=== PATIENT | male | born 1995 | race Caucasian/White ===

== ENCOUNTER 2017-07-05 23:07 | Emergency (ER) | payer OTHER ==
--- NOTE | 2017-07-05 23:33 | ED Physician Documentation ---
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 denies: head, neck, face, chest, abdomen Injury to Right Extremity: none Injury to Left Extremity: none Further Comments: yes (pt can walk stand declares pain worse wt bearing but does not radiate from site xc when coughs or strains) - ROS CONST: no problems. denies: recent illness, fever NEURO: dizziness MS/SKIN/LYMPH: back pain. denies: weakness, numbness, neck pain, ankle swelling , leg swelling EYES/ENT: none CVS/RESP: none - PAST HX Past History: none Allergies/Adverse Reactions: Allergies Allergy/AdvReac Type Severity Reaction Status Date / Time No Known Allergies Allergy Unverified 07/05/17 23:29 Home Medications: Ambulatory Orders Medication Instructions Recorded NK [NK] 07/05/17 - SOCIAL HX Smoking History: non-smoker Alcohol Use: none Drug Use: none - FAMILY HX Family History: no significant history - REVIEWED ASSESSMENTS Nursing Assessment Reviewed: Yes Vitals Reviewed: Yes ED Results Lab/Radiology - Radiology Radiology Impressions: radiologists says no fracture - Orders Orders: ED Orders Category Date Time Status Place IV Lock 1T Care 07/05/17 23:28 Ordered fentaNYL CITRATE/PF [Duragesic] Med 07/05/17 23:29 Once 50 mcg IVP NOW ONE Fall Physical Exam - Physical Exam General Appearance: moderate distress Head: non-tender, no swelling, no obvious injury Neck: non-tender, painless ROM, trachea midline Eye: [place], EOMI ENT: nml external inspection Resp/CVS: chest non-tender, no ecchymosis, breath sounds nml, no resp. distress , heart sounds nml. No: subcutaneous emphysema, decreased breath sounds, wheezes, rales Abdomen: soft, non-tender Neuro: oriented x3, sensation nml, motor nml, mood/affect nml Skin: color nml, no rash. No: cyanosis, diaphoresis, pallor, ecchymosis Back: No: no CVA tenderness, no vertebral tenderness Extremities: atraumatic, pelvis stable (but poelvicstress prod pain area and rt hip). No: unable to bear weight - [place] Coma Score Eyes Open: Spontaneous Speech: Oriented Motor: Localizes to Pain Discharge Clincal Impression: fall 10 feet onto metal machine, thoraco-lumbar back kpain Referrals: Primary Doctor,No [Primary Care Provider] - 2 Days Disposition: HOME, SELF-CARE Decision to Admit: NO Decision Time: 00:42
[2017-07-06] MEDS: KETOROLAC TROMETHAMINE 30 MG/1ML VIAL IVP ONE (00:09)
[2017-07-06] MEDS: fentaNYL CITRATE/PF 100 MCG/ 2ML AMP IVP ONE (00:09)
[2017-07-06 01:45] VITALS: BP 138/68
[2017-07-06] MEDS: HYDROcodone /APAP 5/325 1 EACH TABLET PO ONE (01:45)
--- NOTE | 2017-07-06 06:35 | Diagnostic Imaging Report ---
[facility] [address] [facility] [address] [address] Report Submission Date: Jul 06, 2017 12:13:24 AM CDT Patient Study Name: NISREEN GRANT Date: Jul 05, 2017 11:49:18 PM CDT Modality Type: CT\SR Gender: M Description: CT L-SPINE W/O CONTRAS : 96 Institution: [facility] Physician: RAND [facility]UR[facility] Computed tomography of the lumbar spine without contrast History: Low back pain after fall Findings: Transverse lumbar spine sections are obtained without contrast. The lumbar spine is intact without fracture, disc space narrowing, spondylolysis, or spondylolisthesis. There is no disc centered abnormality, foraminal stenosis , or central canal stenosis. Impression: Intact lumbar spine. Electronically signed on Jul 06, 2017 12:13:24 AM CDT by: Keshawn SHELL
--- NOTE | 2017-07-06 06:36 | Diagnostic Imaging Report ---
[facility] [address] [facility] [address] [address] Report Submission Date: Jul 06, 2017 12:15:59 AM CDT Patient Study Name: NISREEN GRANT Date: Jul 05, 2017 11:55:08 PM CDT Modality Type: CT\SR Gender: M Description: CT T-SPINE W/O CONTRAS : 96 Institution: [facility] Physician: RAND HURST Computed tomography of the thoracic spine without contrast History: Back pain after fall Findings: Transverse thoracic spine sections are obtained without contrast. The thoracic spine is intact without fracture, disc space narrowing, focal bone lesion, or paraspinal swelling. A Impression: Intact thoracic spine. Electronically signed on Jul 06, 2017 12:15:59 AM CDT by: Keshawn SHELL
== END 2017-07-06 01:10 | disposition home or self-care (01) ==
LOC: ED 23:07
DX: M54.5 Low back pain (principal); M54.6 Pain in thoracic spine; W19.XXXA Unspecified fall, initial encounter; Y93.9 Activity, unspecified; Y99.9 Unspecified external cause status
CPT/HCPCS: 72128; 72131; 99283

== ENCOUNTER 2017-07-05 23:07 | Emergency (ER) | payer SELFPAY ==
--- NOTE | 2017-07-05 23:33 | ED Physician Documentation ---
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 denies: head, neck, face, chest, abdomen Injury to Right Extremity: none Injury to Left Extremity: none Further Comments: yes (pt can walk stand declares pain worse wt bearing but does not radiate from site xc when coughs or strains) - ROS CONST: no problems. denies: recent illness, fever NEURO: dizziness MS/SKIN/LYMPH: back pain. denies: weakness, numbness, neck pain, ankle swelling , leg swelling EYES/ENT: none CVS/RESP: none - PAST HX Past History: none Allergies/Adverse Reactions: Allergies Allergy/AdvReac Type Severity Reaction Status Date / Time No Known Allergies Allergy Unverified 07/05/17 23:29 Home Medications: Ambulatory Orders Medication Instructions Recorded NK [NK] 07/05/17 - SOCIAL HX Smoking History: non-smoker Alcohol Use: none Drug Use: none - FAMILY HX Family History: no significant history - REVIEWED ASSESSMENTS Nursing Assessment Reviewed: Yes Vitals Reviewed: Yes ED Results Lab/Radiology - Radiology Radiology Impressions: radiologists says no fracture - Orders Orders: ED Orders Category Date Time Status Place IV Lock 1T Care 07/05/17 23:28 Ordered fentaNYL CITRATE/PF [Duragesic] Med 07/05/17 23:29 Once 50 mcg IVP NOW ONE Fall Physical Exam - Physical Exam General Appearance: moderate distress Head: non-tender, no swelling, no obvious injury Neck: non-tender, painless ROM, trachea midline Eye: [place], EOMI ENT: nml external inspection Resp/CVS: chest non-tender, no ecchymosis, breath sounds nml, no resp. distress , heart sounds nml. No: subcutaneous emphysema, decreased breath sounds, wheezes, rales Abdomen: soft, non-tender Neuro: oriented x3, sensation nml, motor nml, mood/affect nml Skin: color nml, no rash. No: cyanosis, diaphoresis, pallor, ecchymosis Back: No: no CVA tenderness, no vertebral tenderness Extremities: atraumatic, pelvis stable (but poelvicstress prod pain area and rt hip). No: unable to bear weight - [place] Coma Score Eyes Open: Spontaneous Speech: Oriented Motor: Localizes to Pain Discharge Clincal Impression: fall 10 feet onto metal machine, thoraco-lumbar back kpain Referrals: Primary Doctor,No [Primary Care Provider] - 2 Days Disposition: HOME, SELF-CARE Decision to Admit: NO Decision Time: 00:42
[2017-07-06] MEDS: KETOROLAC TROMETHAMINE 30 MG/1ML VIAL IVP ONE (00:09)
[2017-07-06] MEDS: fentaNYL CITRATE/PF 100 MCG/ 2ML AMP IVP ONE (00:09)
[2017-07-06 01:45] VITALS: BP 138/68
[2017-07-06] MEDS: HYDROcodone /APAP 5/325 1 EACH TABLET PO ONE (01:45)
--- NOTE | 2017-07-06 06:35 | Diagnostic Imaging Report ---
[facility] [address] [facility] [address] [address] Report Submission Date: Jul 06, 2017 12:13:24 AM CDT Patient Study Name: NISREEN GRANT Date: Jul 05, 2017 11:49:18 PM CDT Modality Type: CT\SR Gender: M Description: CT L-SPINE W/O CONTRAS : 96 Institution: [facility] Physician: R[facility] Computed tomography of the lumbar spine without contrast History: Low back pain after fall Findings: Transverse lumbar spine sections are obtained without contrast. The lumbar spine is intact without fracture, disc space narrowing, spondylolysis, or spondylolisthesis. There is no disc centered abnormality, foraminal stenosis , or central canal stenosis. Impression: Intact lumbar spine. Electronically signed on Jul 06, 2017 12:13:24 AM CDT by: Keshawn SHELL
--- NOTE | 2017-07-06 06:36 | Diagnostic Imaging Report ---
[facility] [address] [facility] [address] [address] Report Submission Date: Jul 06, 2017 12:15:59 AM CDT Patient Study Name: NISREEN GRANT Date: Jul 05, 2017 11:55:08 PM CDT Modality Type: CT\SR Gender: M Description: CT T-SPINE W/O CONTRAS : 96 Institution: [facility] Physician: RAND HURST Computed tomography of the thoracic spine without contrast History: Back pain after fall Findings: Transverse thoracic spine sections are obtained without contrast. The thoracic spine is intact without fracture, disc space narrowing, focal bone lesion, or paraspinal swelling. A Impression: Intact thoracic spine. Electronically signed on Jul 06, 2017 12:15:59 AM CDT by: Keshawn SHELL
== END 2017-07-06 01:10 | disposition home or self-care (01) ==
LOC: ED 23:07
DX: M54.5 Low back pain (principal); M54.6 Pain in thoracic spine; W19.XXXA Unspecified fall, initial encounter; Y93.9 Activity, unspecified; Y99.9 Unspecified external cause status
CPT/HCPCS: 72128; 72131; J1885; 96374; 99283; S1016